=== PATIENT | female | born 1960 | race Caucasian/White ===

== ENCOUNTER → 2021-01-04 | Outpatient (CLI) | payer BC, OTHER ==
[~2021-01-04] MED LIST: ABILIFY 5 MG TAB5 MG PO; ASPIRIN EC81 MG PO; CEPHALEXIN500 MG PO; DONEPEZIL HCL5 MG PO; LEVOTHYROXINE25 MCG PO; MIRTAZAPINE30 MG PO
== END ==
LOC: KOH-I 11:40
DX: R51.9 Headache, unspecified (principal); R41.3 Other amnesia; R29.6 Repeated falls
CPT/HCPCS: 70450

== ENCOUNTER 2021-01-25 19:53 | Emergency (ER) | payer BC, OTHER ==
[2021-03-25] MEDS ORDERED: MIRTAZAPINE30 MG PO (04:07)
[2021-03-25] MEDS ORDERED: DONEPEZIL HCL5 MG PO (04:07)
[2021-03-25] MEDS ORDERED: CEPHALEXIN500 MG PO (04:07)
[2021-03-25] MEDS ORDERED: ABILIFY 5 MG TAB5 MG PO (04:08)
== END 2021-01-26 01:53 | disposition home or self-care (01) ==
LOC: ER1 19:53
DX: S09.90XA Unspecified injury of head, initial encounter (principal); I10 Essential (primary) hypertension; E78.5 Hyperlipidemia, unspecified; Z79.899 Other long term (current) drug therapy; Z88.0 Allergy status to penicillin; F17.210 Nicotine dependence, cigarettes, uncomplicated; Y08.89XA Assault by other specified means, initial encounter
CPT/HCPCS: 70450; 99283

== ENCOUNTER 2021-03-24 14:03 | Observation (INO) | payer BC, OTHER ==
[~2021-03-24] VITALS: Ht 170.2 cm; Wt 72.6 kg
[2021-03-24 16:47] LABS: HEMOGLOBIN 9.5 gm/dl (12.3-15.3); RED BLOOD COUNT 4.08 M/UL (4.00-5.10); WHITE BLOOD COUNT 6.7 K/UL (4.5-11.0)
[2021-03-25] MEDS ORDERED: LEVOTHYROXINE25 MCG PO (04:07)
[2021-03-25 07:05] LABS: RED BLOOD COUNT 4.07 M/UL (4.00-5.10); WHITE BLOOD COUNT 5.8 K/UL (4.5-11.0)
[2021-03-26] MEDS ORDERED: ASPIRIN EC81 MG PO (11:06)
== END 2021-03-26 13:44 | disposition home or self-care (01) ==
LOC: ER1 14:03 → MED SURG 4 20:55 → CDU 20:55 → MED SURG 4 03-25 03:38
PROVIDERS: Emergency Medicine; ADMIT Internal Medicine
DX: G93.41 Metabolic encephalopathy (principal); G89.29 Other chronic pain; M54.6 Pain in thoracic spine; S22.060A Wedge compression fracture of T7-T8 vertebra, initial encounter for closed fracture; R77.8 Other specified abnormalities of plasma proteins; E86.1 Hypovolemia; N17.9 Acute kidney failure, unspecified; D50.9 Iron deficiency anemia, unspecified; E87.6 Hypokalemia; G30.9 Alzheimer's disease, unspecified; F02.80 Dementia in other diseases classified elsewhere, unspecified severity, without behavioral disturbance, psychotic disturbance, mood disturbance, and anxiety; E89.0 Postprocedural hypothyroidism; Z87.440 Personal history of urinary (tract) infections; Z88.0 Allergy status to penicillin; Z79.899 Other long term (current) drug therapy; Z20.822 Contact with and (suspected) exposure to COVID-19; X58.XXXA Exposure to other specified factors, initial encounter
CPT/HCPCS: ECHO; 36415; 70450; 72125; 72128; 72131; 80053; 80061; 81001; 82550; 82553; 83036; 83735; 83874; 84439; 84443; 84484; 85025; 87086; 92610; 93005; 93306; 96372; 97162; 97167; 97530; 99285; G0378; J1644; J7030; U0002

== ENCOUNTER 2021-04-20 15:07 | Observation (INO) | payer BC, OTHER ==
[~2021-04-20] VITALS: Ht 165.1 cm; Wt 63.5 kg
[~2021-04-20 15:07] MED LIST changes: -ABILIFY 5 MG TAB5 MG PO; -CEPHALEXIN500 MG PO; -DONEPEZIL HCL5 MG PO; -MIRTAZAPINE30 MG PO
[2021-04-20 16:18] LABS: HEMOGLOBIN 9.1 gm/dl (12.3-15.3); RED BLOOD COUNT 3.93 M/UL (4.00-5.10); WHITE BLOOD COUNT 9.4 K/UL (4.5-11.0)
[2021-04-21] MEDS ORDERED: IBU800 MG PO (06:18)
[2021-04-21] MEDS ORDERED: TYLENOL EXTRA500 MG PO (06:19)
[2021-04-21] MEDS ORDERED: GABAPENTIN300 MG PO (06:20)
[2021-04-21] MEDS ORDERED: LISINOPRIL10 MG PO (06:20)
[2021-04-21] MEDS ORDERED: HYDROCHLOROTHIA25 MG PO (06:21)
[2021-04-21] MEDS ORDERED: DONEPEZIL HCL5 MG PO (15:59)
[2021-04-21] MEDS ORDERED: ABILIFY 5 MG TAB5 MG PO (15:59)
[2021-04-21] MEDS ORDERED: MIRTAZAPINE30 MG PO (15:59)
[2021-04-21] MEDS ORDERED: CEPHALEXIN500 MG PO (16:05)
[2021-04-22 06:50] LABS: HEMOGLOBIN 7.8 gm/dl (12.3-15.3); WHITE BLOOD COUNT 7.8 K/UL (4.5-11.0)
[2021-04-22 06:51] LABS: RED BLOOD COUNT 3.5 M/UL (4.00-5.10)
--- NOTE | 2021-04-22 11:49 | NUR ---
patient ambulated with 2 assist hallway and tolerating well.
[2021-04-22] MEDS ORDERED: DOCUSATE SODIU100 MG PO (16:56)
[2021-04-22] MEDS ORDERED: POLYETHYLENE GL17 GM PO (16:56)
[2021-04-22] MEDS ORDERED: CHRONULAC20 GM/30 M PO ×2 (16:56→17:05)
[2021-04-22] MEDS ORDERED: ARICEPT5 MG PO (17:08)
[2021-04-22] MEDS ORDERED: OMNICEF 300 MG300 MG PO (17:30)
[2021-04-22] MEDS ORDERED: FERROUS GLUCON324 M1 PO (18:20)
--- NOTE | 2021-04-22 18:52 | NUR ---
patient family stated they are the one setting patient up for home health services.
== END 2021-04-22 18:45 | disposition home or self-care (01) ==
LOC: ER1 15:07 → M/S 22:55 → CDU 22:55 → M/S 04-21 16:10
PROVIDERS: Internal Medicine; Physician Assistant Medical; ADMIT Internal Medicine
DX: N17.9 Acute kidney failure, unspecified (principal); E86.0 Dehydration; I95.9 Hypotension, unspecified; K59.00 Constipation, unspecified; F03.90 Unspecified dementia, unspecified severity, without behavioral disturbance, psychotic disturbance, mood disturbance, and anxiety; E03.9 Hypothyroidism, unspecified; D64.9 Anemia, unspecified; R77.8 Other specified abnormalities of plasma proteins; I25.10 Atherosclerotic heart disease of native coronary artery without angina pectoris; E87.6 Hypokalemia; R10.9 Unspecified abdominal pain; Z20.822 Contact with and (suspected) exposure to COVID-19; Z90.49 Acquired absence of other specified parts of digestive tract; Z79.82 Long term (current) use of aspirin; Z79.899 Other long term (current) drug therapy; Z88.0 Allergy status to penicillin; Z87.891 Personal history of nicotine dependence
CPT/HCPCS: 36415; 80048; 80053; 81001; 82550; 82553; 83540; 83550; 83605; 83874; 84484; 85025; 93005; 96365; 96372; 96376; 97162; 97166; 97530; 99285; G0378; J0696; J1644; J7030; U0002

== ENCOUNTER 2021-06-01 20:12 | Observation (INO) | payer MEDICARE, OTHER ==
[~2021-06-01] VITALS: Ht 167.6 cm; Wt 60.8 kg
[~2021-06-01 20:12] MED LIST changes: +ABILIFY 5 MG TAB5 MG PO; +ARICEPT5 MG PO; +CEPHALEXIN500 MG PO; +CHRONULAC20 GM/30 M PO; +DOCUSATE SODIU100 MG PO; +DONEPEZIL HCL5 MG PO; +FERROUS GLUCON324 M1 PO; +GABAPENTIN300 MG PO; +HYDROCHLOROTHIA25 MG PO; +IBU800 MG PO; +LISINOPRIL10 MG PO; +MIRTAZAPINE30 MG PO; +OMNICEF 300 MG300 MG PO; +POLYETHYLENE GL17 GM PO; +TYLENOL EXTRA500 MG PO
[2021-06-01 21:35] LABS: RED BLOOD COUNT 3.31 M/UL (4.00-5.10); WHITE BLOOD COUNT 5.5 K/UL (4.5-11.0)
--- NOTE | 2021-06-02 06:33 | NUR ---
0622- PT ARRIVED TO FLOOR IN STABLE CONDITION. FALL PRECAUTIONS PUT IN PLACE. UNIT ORIENTATION PROVIDED. PT CONFUSED BUT STATES UNDERSTANDING.
[2021-06-02] MEDS ORDERED: MELATONIN3 MG PO (20:59)
[2021-06-03] MEDS ORDERED: PROVENTIL HFA6.7 GM INH (09:20)
[2021-06-03] MEDS ORDERED: MEDROL DOSEPAK 24 MG PO (09:20)
[2021-06-03] MEDS ORDERED: AZITHROMYCIN500 MG PO (09:20)
== END 2021-06-03 15:29 | disposition home or self-care (01) ==
LOC: ER1 20:12 → M/S 06-02 00:46 → CDU 06-02 00:46 → M/S 06-02 06:25
PROVIDERS: Internal Medicine; Student in an Organized Health Care Education/Training Program; ADMIT Internal Medicine
DX: G30.9 Alzheimer's disease, unspecified (principal); F02.80 Dementia in other diseases classified elsewhere, unspecified severity, without behavioral disturbance, psychotic disturbance, mood disturbance, and anxiety; G93.40 Encephalopathy, unspecified; U07.1 COVID-19; E86.0 Dehydration; N17.9 Acute kidney failure, unspecified; N18.30 Chronic kidney disease, stage 3 unspecified; D50.9 Iron deficiency anemia, unspecified; E89.0 Postprocedural hypothyroidism; R77.8 Other specified abnormalities of plasma proteins; R47.81 Slurred speech; R29.810 Facial weakness; E44.0 Moderate protein-calorie malnutrition; Z88.8 Allergy status to other drugs, medicaments and biological substances; Z79.899 Other long term (current) drug therapy; Z87.891 Personal history of nicotine dependence
CPT/HCPCS: 36415; 70450; 70551; 71045; 80048; 80053; 81001; 82140; 82550; 82553; 82607; 82746; 82962; 83735; 83874; 84100; 84439; 84443; 84484; 85025; 85652; 86140; 96375; 96376; 99285; G0378; J0696; J3411; J7030; U0002

== ENCOUNTER 2021-08-04 20:43 | Observation (INO) | payer MEDICARE, OTHER ==
[~2021-08-04] VITALS: Ht 162.6 cm; Wt 68.0 kg
[~2021-08-04 20:43] MED LIST changes: +AZITHROMYCIN500 MG PO; +MEDROL DOSEPAK 24 MG PO; +MELATONIN3 MG PO; +PROVENTIL HFA6.7 GM INH
[2021-08-04 23:11] LABS: HEMOGLOBIN 7.6 gm/dl (12.3-15.3); WHITE BLOOD COUNT 7.4 K/UL (4.5-11.0)
[2021-08-05 05:47] LABS: HEMOGLOBIN 8.3 gm/dl (12.3-15.3); RED BLOOD COUNT 3.29 M/UL (4.00-5.10); WHITE BLOOD COUNT 6.2 K/UL (4.5-11.0)
[2021-08-05 06:35] LABS: BUN/CREATININE RATIO 21 (0-10)
[2021-08-05] MEDS ORDERED: LISINOPRIL10 MG PO (11:20)
[2021-08-05] MEDS ORDERED: HYDROCHLOROTHIA25 MG PO (11:20)
[2021-08-05] MEDS ORDERED: FLAGYL 250 MG250 MG PO ×2 (12:44→12:51)
== END 2021-08-05 13:40 | disposition home or self-care (01) ==
LOC: ER1 20:43 → CDU 08-05 00:27
PROVIDERS: Physician Assistant Medical; ADMIT Internal Medicine
DX: R10.32 Left lower quadrant pain (principal); G30.9 Alzheimer's disease, unspecified; F02.80 Dementia in other diseases classified elsewhere, unspecified severity, without behavioral disturbance, psychotic disturbance, mood disturbance, and anxiety; E89.0 Postprocedural hypothyroidism; N18.9 Chronic kidney disease, unspecified; D63.1 Anemia in chronic kidney disease; Z20.822 Contact with and (suspected) exposure to COVID-19; Z86.16 Personal history of COVID-19; Z87.19 Personal history of other diseases of the digestive system; Z88.0 Allergy status to penicillin; Z79.82 Long term (current) use of aspirin; Z79.899 Other long term (current) drug therapy
CPT/HCPCS: 36415; 80048; 80053; 81001; 82550; 82553; 83605; 83874; 84484; 85018; 85025; 85652; 86140; 86850; 86900; 86901; 87040; 93005; 99285; C9113; G0378; J0696; Q9967; U0002

== ENCOUNTER 2021-10-18 17:12 | Inpatient (IN) | payer MEDICARE, OTHER ==
[~2021-10-18] VITALS: Ht 162.6 cm; Wt 74.8 kg
[~2021-10-18 17:12] MED LIST changes: +FLAGYL 250 MG250 MG PO; +VITAMIN D21250 MCG PO; +XARELTO15 PACK PO
[2021-10-18 18:30] LABS: RED BLOOD COUNT 2.12 M/UL (4.00-5.10); WHITE BLOOD COUNT 9.3 K/UL (4.5-11.0)
[2021-10-18 18:35] LABS: HEMOGLOBIN 4.2 gm/dl (12.3-15.3)
[2021-10-19 02:49] LABS: RED BLOOD COUNT 2.54 M/UL (4.00-5.10); WHITE BLOOD COUNT 5.7 K/UL (4.5-11.0)
[2021-10-19 02:50] LABS: HEMOGLOBIN 5.8 gm/dl (12.3-15.3)
[2021-10-19] MEDS ORDERED: IPRAT-ALBUT 0.5-3 ML INH (20:27)
[2021-10-19] MEDS ORDERED: TYLENOL EXTRA500 MG PO (20:31)
[2021-10-19] MEDS ORDERED: TRAMADOL HCL50 MG PO (20:31)
[2021-10-19] MEDS ORDERED: DULCOLAX5 MG PO (20:39)
[2021-10-19] MEDS ORDERED: STOOL SOFTENER100 MG PO (20:40)
[2021-10-19] MEDS ORDERED: NICOTINE PATCH1 EAC2 TD (20:42)
[2021-10-19] MEDS ORDERED: B-121000 MCG PO (20:45)
[2021-10-19] MEDS ORDERED: ONE DAILY WOME1 EAC1 PO (20:48)
[2021-10-19] MEDS ORDERED: CLARITIN10 MG PO (20:49)
[2021-10-19] MEDS ORDERED: BIOFREEZE473 ML TOP (20:49)
[2021-10-19] MEDS ORDERED: MELATONIN5 M2 PO (20:50)
[2021-10-20 02:24] LABS: HEMOGLOBIN 7.1 gm/dl (12.3-15.3); WHITE BLOOD COUNT 5.2 K/UL (4.5-11.0)
[2021-10-20 02:27] LABS: RED BLOOD COUNT 2.93 M/UL (4.00-5.10)
[2021-10-21 09:08] LABS: RED BLOOD COUNT 2.87 M/UL (4.00-5.10)
[2021-10-21 09:15] LABS: WHITE BLOOD COUNT 3.6 K/UL (4.5-11.0)
[2021-10-21 09:17] LABS: HEMOGLOBIN 6.9 gm/dl (12.3-15.3)
[2021-10-22 06:43] LABS: HEMOGLOBIN 9.8 gm/dl (12.3-15.3)
[2021-10-22 06:44] LABS: RED BLOOD COUNT 3.78 M/UL (4.00-5.10); WHITE BLOOD COUNT 5.6 K/UL (4.5-11.0)
[2021-10-23 02:25] LABS: HEMOGLOBIN 10.8 gm/dl (12.3-15.3); RED BLOOD COUNT 4.18 M/UL (4.00-5.10); WHITE BLOOD COUNT 5.1 K/UL (4.5-11.0)
[2021-10-24 03:04] LABS: HEMOGLOBIN 10.8 gm/dl (12.3-15.3); RED BLOOD COUNT 4.15 M/UL (4.00-5.10)
[2021-10-25 03:36] LABS: HEMOGLOBIN 11.3 gm/dl (12.3-15.3); RED BLOOD COUNT 4.34 M/UL (4.00-5.10); WHITE BLOOD COUNT 5.4 K/UL (4.5-11.0)
[2021-10-25] MEDS ORDERED: PERCOCET 5/325 T1 EA PO (13:49)
[2021-10-26 04:59] LABS: HEMOGLOBIN 12.2 gm/dl (12.3-15.3); RED BLOOD COUNT 4.67 M/UL (4.00-5.10)
--- NOTE | 2021-10-27 17:11 | NUR ---
1650: PAIENT TELE MONITOR NOTED NEW ONSET OF AFIB 130 - 170. PATIENT IN NO ACUTE DISTRESS SPO2: 95% BP: 131/83 RR: 16. STAT EKG ORDERED FOR CONFIRMATION AND DR EDWARDS UPDATED AND TRANSFER ORDER NOTED FOR PCU FOR CARDIZEM GTT. 1715: EKG BEING DONE AT THIS TIME.EKG CONFIRMS A-FIB. PATIENT REMAINS IN NO DISTRESS. DAUGHTER MAGNUS OROPEZA, NOTIFIED OF IMPENDING TRANSFER TO PCU. 1725: AWAITNG NURSE AVAILABLILTY TO TAKE REPORT.
--- NOTE | 2021-11-01 12:34 | NUR ---
11/01/21 1234 OXYGEN SATURATION 87% RA. PLACED BACK ON OXYGEN AT 2L WITH SATURATION UP TO 97%
--- NOTE | 2021-11-01 15:59 | NUR ---
11/01/21 1600 SPOKE WITH FAMILY REGARDING D/C. STATED IT WOULD BE AFTER 6 BEFORE THEY WOULD BE ABLE TO COME GET PT. HOME O2 TO BE SET UP PRIOR TO D/C, PT ALREADY HAS HH PER FAMILY.
[2021-11-03] MEDS ORDERED: LOPRESSOR 25 MG25 MG PO (08:26)
[2021-11-03] MEDS ORDERED: ROXANOL SO10 MG/5 ML SL (08:33)
[2021-11-03] MEDS ORDERED: ATIVAN0.5 MG PO (08:33)
== END 2021-11-03 13:30 | DRG 329 ==
LOC: ER1 17:12 → PROG CARE 21:18 → CDU 21:18 → MED SURG 4 21:18 → 3 EAST 21:18 → MED SURG 4 10-19 14:57 → PROG CARE 10-27 18:09
PROVIDERS: Emergency Medicine; Internal Medicine; ADMIT Internal Medicine
PROC: 30233N1 Transfusion of Nonautologous Red Blood Cells into Peripheral Vein, Percutaneous Approach (ICD-10-PCS; principal; 2021-10-19)
PROC: B24BZZZ Ultrasonography of Heart with Aorta (ICD-10-PCS; 2021-10-19)
PROC: 0DJD8ZZ Inspection of Lower Intestinal Tract, Via Natural or Artificial Opening Endoscopic (ICD-10-PCS; 2021-10-20)
PROC: 0DBH8ZX Excision of Cecum, Via Natural or Artificial Opening Endoscopic, Diagnostic (ICD-10-PCS; 2021-10-21)
PROC: 0DBH4ZZ Excision of Cecum, Percutaneous Endoscopic Approach (ICD-10-PCS; 2021-10-25)
DX: C18.0 Malignant neoplasm of cecum (principal); I63.331 Cerebral infarction due to thrombosis of right posterior cerebral artery; Z20.822 Contact with and (suspected) exposure to COVID-19; G93.41 Metabolic encephalopathy; D62 Acute posthemorrhagic anemia; N17.9 Acute kidney failure, unspecified; K92.2 Gastrointestinal hemorrhage, unspecified; K56.7 Ileus, unspecified; G30.9 Alzheimer's disease, unspecified; F02.80 Dementia in other diseases classified elsewhere, unspecified severity, without behavioral disturbance, psychotic disturbance, mood disturbance, and anxiety; D63.8 Anemia in other chronic diseases classified elsewhere; E03.9 Hypothyroidism, unspecified; I12.9 Hypertensive chronic kidney disease with stage 1 through stage 4 chronic kidney disease, or unspecified chronic kidney disease; N18.30 Chronic kidney disease, stage 3 unspecified; K56.41 Fecal impaction; I08.1 Rheumatic disorders of both mitral and tricuspid valves; D69.6 Thrombocytopenia, unspecified; E78.5 Hyperlipidemia, unspecified; I48.91 Unspecified atrial fibrillation; F41.9 Anxiety disorder, unspecified; Z87.19 Personal history of other diseases of the digestive system; Z87.440 Personal history of urinary (tract) infections; Z98.890 Other specified postprocedural states; Z98.891 History of uterine scar from previous surgery; Z82.49 Family history of ischemic heart disease and other diseases of the circulatory system; Z88.0 Allergy status to penicillin; Z79.01 Long term (current) use of anticoagulants; Z79.82 Long term (current) use of aspirin; Z91.14 Patient's other noncompliance with medication regimen; Z86.711 Personal history of pulmonary embolism; Z98.51 Tubal ligation status
CPT/HCPCS: ECHO; 0240U; 36415; 36600; 70450; 70496; 70551; 71045; 80048; 80053; 80170; 81001; 82270; 82378; 82550; 82553; 82803; 83540; 83550; 83605; 83735; 83874; 83880; 84100; 84484; 85018; 85025; 85027; 85610; 85730; 86140; 86850; 86900; 86901; 86920; 87040; 88341; 88342; 93005; 93306; 93880; 94640; 94664; 94760; 96374; 96376; 97110-GP-CQ; 97116-GP-CQ; 97162; 97164; 97167; 97530; 99285; C9113; G0378; J1100; J1170; J1580; J1756; J1940; J2001; J2270; J2405; J2704; J3010; J7030; J7040; J7120; P9016; Q9967; U0002